=== PATIENT | female | born 1980 | race Two or more races ===

== ENCOUNTER 2017-09-27 09:01 | Emergency (ER) | payer SELFPAY ==
[2017-09-27] MEDS: DIPHTH,PERTUSS(ACELL),TET TOX 0.5 ML DISP.SYRIN. VAX IM (09:46)
[2017-09-27] MEDS: MORPHINE SULFATE 4 MG/ML DISP.SYRIN. IV/SQ ×2 (09:47→10:19)
[2017-09-27] MEDS: IV NORMAL SALINE 1000ML BAG 1,000 ML IV (09:48)
[2017-09-27] MEDS: ONDANSETRON PF 4 MG/2 ML VIAL. IV (09:48)
[2017-09-27 09:50] LABS: ADD MAN DIFF? NO
[2017-09-27 09:53] LABS: BASO # 0.1 x10^3/uL (0.0-0.2); BASO % 1 % (0-3); EOS % 1 % (0-3); HEMATOCRIT 40.8 % (36.0-47.0); HEMOGLOBIN 13.6 g/dL (12.0-15.5); LYMPH # 2.6 x10^3/uL (1.0-4.8); LYMPH % 40 % (24-48); MEAN CORPUSCULAR HEMOGLOBIN 30 pg (25-35); MEAN CORPUSCULAR HGB CONC 33 g/dL (31-37); MEAN CORPUSCULAR VOLUME 89 fL (79-100); MONO # 0.5 x10^3/uL (0.0-1.1); MONO % 8 % (0-9); NEUT # 3.4 x10^3uL (1.8-7.7); NEUT % 51 % (31-73); PLATELET COUNT 300 x10^3/uL (140-400); RED BLOOD COUNT 4.58 x10^6/uL (3.50-5.40); RED CELL DISTRIBUTION WIDTH 12.4 % (11.5-14.5); WHITE BLOOD COUNT 6.7 x10^3/uL (4.0-11.0)
[2017-09-27 10:11] LABS: ANION GAP 8 (6-14); BLOOD UREA NITROGEN 16 mg/dL (7-20); CALCIUM 8.5 mg/dL (8.5-10.1); CARBON DIOXIDE 28 mmol/L (21-32); CHLORIDE 104 mmol/L (98-107); CREATININE 0.6 mg/dL (0.6-1.0); GFR 111.9; GLUCOSE 100 mg/dL (70-99); POTASSIUM 3.9 mmol/L (3.5-5.1); SODIUM 140 mmol/L (136-145)
== END 2017-09-27 12:01 | disposition home or self-care (01) ==
LOC: ER 12:01
DX: T70.4XXA Effects of high-pressure fluids, initial encounter (principal); S69.82XA Other specified injuries of left wrist, hand and finger(s), initial encounter; W29.8XXA Contact with other powered hand tools and household machinery, initial encounter; Y93.E9 Activity, other interior property and clothing maintenance; Y92.89 Other specified places as the place of occurrence of the external cause; Y99.8 Other external cause status
CPT/HCPCS: 36415; 73140; 80048; 85025; 90471; 90715; 93005; 96365; 96375; 96376; 99285-25; J0690; J2270; J2405; J7030

== ENCOUNTER 2019-05-17 22:06 | Emergency (ER) | payer SELFPAY ==
[~2019-05-17] VITALS: Ht 162.6 cm; Wt 63.5 kg
[2019-05-17 22:30] VITALS: BP 134/56
[2019-05-17] MEDS ORDERED: FAMO-63 PO (22:56)
[2019-05-17] MEDS ORDERED: DIPH25CA58 PO (22:56)
[2019-05-17] MEDS ORDERED: PRED20TA PO (22:56)
--- NOTE | 2019-05-17 22:56 | PHYS DOC ---
Past Medical History Past Medical History: No Pertinent History Past Surgical History: No Surgical History Alcohol Use: None Drug Use: None Adult General Chief Complaint Chief Complaint: SKIN RASH/ABSCESS HPI HPI Patient is a 38 year old [f__sex] who presents with [] Review of Systems Review of Systems Constitutional: Denies fever or chills [] Eyes: Denies change in visual acuity, redness, or eye pain [] HENT: Denies nasal congestion or sore throat [] Respiratory: Denies cough or shortness of breath [] Cardiovascular: No additional information not addressed in HPI [] GI: Denies abdominal pain, nausea, vomiting, bloody stools or diarrhea [] : Denies dysuria or hematuria [] Musculoskeletal: Denies back pain or joint pain [] Integument: Denies rash or skin lesions [] Neurologic: Denies headache, focal weakness or sensory changes [] Endocrine: Denies polyuria or polydipsia [] All other systems were reviewed and found to be within normal limits, except as documented in this note. Current Medications Current Medications Current Medications Medications (Trade) Dose Ordered Sig/Erick Start Time Stop Time Status Last Admin Dose Admin Dexamethasone (Decadron) 10 mg 1X ONCE 05/17/19 23:30 05/17/19 23:19 DC 05/17/19 23:10 10 MG Diphenhydramine HCl (Benadryl) 25 mg 1X ONCE 05/17/19 23:30 05/17/19 23:19 DC 05/17/19 23:10 25 MG Famotidine (Pepcid) 20 mg 1X ONCE 05/17/19 23:30 05/17/19 23:19 DC 05/17/19 23:10 20 MG Allergies Allergies Allergies Coded Allergies Type Severity Reaction Last Updated Verified No Known Drug Allergies 09/27/17 No Physical Exam Physical Exam Constitutional: Well developed, well nourished, no acute distress, non-toxic appearance. [] HENT: Normocephalic, atraumatic, bilateral external ears normal, oropharynx moist, no oral exudates, nose normal. [] Eyes: PERRLA, EOMI, conjunctiva normal, no discharge. [] Neck: Normal range of motion, no tenderness, supple, no stridor. [] Cardiovascular:Heart rate regular rhythm, no murmur [] Lungs & Thorax: Bilateral breath sounds clear to auscultation [] Abdomen: Bowel sounds normal, soft, no tenderness, no masses, no pulsatile masses. [] Skin: Warm, dry, no erythema, no rash. [] Back: No tenderness, no CVA tenderness. [] Extremities: No tenderness, no cyanosis, no clubbing, ROM intact, no edema. [] Neurologic: Alert and oriented X 3, normal motor function, normal sensory function, no focal deficits noted. [] Psychologic: Affect normal, judgement normal, mood normal. [] Current Patient Data Vital Signs Vital Signs Date Time Temp Pulse Resp B/P (MAP) Pulse Ox O2 Delivery O2 Flow Rate FiO2 05/17/19 22:30 98.9 78 19 134/56 (82) 97 Room Air 98.9 EKG EKG [] Radiology/Procedures Radiology/Procedures [] Course & Med Decision Making Course & Med Decision Making Pertinent Labs and Imaging studies reviewed. (See chart for details) 38 yo Female presents with body rash. The rash appears to be urticaria. Denies any tongue swelling or oral ulcers. Pt received symptomatic treatment with a dose of Decadron, Benadryl and Pepcid in the ED. She is also given a prescription of Prednisone, Benadryl and Pepcid for the next 4 days. Patient stable for discharge with outpatient follow-up with PCP. Discussed findings and plan with patient and family, who acknowledge understanding and agreement. Dragon Disclaimer Dragon Disclaimer This electronic medical record was generated, in whole or in part, using a voice recognition dictation system. Departure Departure Impression: Primary Impression: Urticaria Disposition: 01 HOME, SELF-CARE Condition: STABLE Referrals: NO PCP (PCP) Patient Instructions: Hives, [id number] Scripts Famotidine (PEPCID) 20 Mg Tablet 20 MG PO BID, #20 TAB Prov: LYNN CHRISTOPHER DO 05/17/19 Diphenhydramine Hcl (BENADRYL) 25 Mg Capsule 1 CAP PO QID PRN for RASH, #30 CAP Prov: LYNN CHRISTOPHER DO 05/17/19 Prednisone (PREDNISONE) 20 Mg Tablet 2 TAB PO DAILY, #8 TAB Start this prescription tomorrow, Saturday05/17/19 Prov: LYNN CHRISTOPHER DO 05/17/19 LYNN CHRISTOPHER DO May 17, 2019 22:56
[2019-05-17] MEDS ORDERED: DEXAMETHASONE 4 MG TABLET PO ONE (23:30)
[2019-05-17] MEDS ORDERED: diphenhydrAMINE HCL 25 MG CAPSULE PO ONE (23:30)
[2019-05-17] MEDS ORDERED: FAMOTIDINE 20 MG TABLET. PO ONE (23:30)
== END 2019-05-17 23:19 | disposition home or self-care (01) ==
LOC: ER 22:06
DX: L50.9 Urticaria, unspecified (principal)
CPT/HCPCS: 99284; J8540; Q0163